=== PATIENT | male | born 1950 | race Caucasian/White ===

== ENCOUNTER 2017-06-30 17:35 | Emergency (ER) | payer MEDICARE, OTHER, SELFPAY ==
[2017-06-30 17:36] VITALS: BP 135/89; PULSE 67; RESP 16; TEMP 36.6; O2SAT 97; BMI 26.2
[2017-06-30 17:48] VITALS: BP 137/77; PULSE 61; RESP 16; O2SAT 99
--- NOTE | 2017-06-30 18:06 | EKG12_ITS ---
Test Reason : SYNCOPE Blood Pressure : / mmHG Vent. Rate : 062 BPM Atrial Rate : 062 BPM P-R Int : 186 ms QRS Dur : 118 ms QT Int : 452 ms P-R-T Axes : 048 -23 -02 degrees QTc Int : 458 ms Normal sinus rhythm Right bundle branch block Left ventricular hypertrophy Abnormal ECG Confirmed by ROSARIO HARE, REMIGIO ([id number]), videotape editor ANTONINO MURPHY ([id number]) on 07/01/2017 2:39:41 PM Referred By: Confirmed By:REMIGIO PONCE MD
[2017-06-30] MEDS: 0.9% Normal Saline 1,000 ML 1000 ML IV (18:17)
[2017-06-30] MEDS: Ondansetron 4 MG/2 ML Vial IV (18:19)
[2017-06-30 18:35] VITALS: BP 128/73; PULSE 57
[2017-06-30 18:39] LABS: Absolute Lymphocyte Count 0.58 X10^3/ul (0.83-4.51); Absolute Neutrophil Count 6.2 X10^3/uL (2.0-7.7); Basophil# 0.01 X10^3/uL; Basophil% 0.1 % (0-1); Eosinophil# 0.07 X10^3/uL; Hematocrit 44.3 % (40-54); Hemoglobin 15.3 g/dl (13.0-16.5); Lymphocyte # 0.58 X10^3/ul (4.0); Mean Corp Hgb Conc 34.5 g/gl (32-36); Mean Corpuscular Hgb 31.7 pg (27.0-32.0); Mean Corpuscular Volume 91.7 fL (80-94); Mean Platelet Vol. 11.2 fl (6.2-12.0); Monocyte# 0.43 X10^3/uL; Monocyte% 5.9 % (0-10); Neutrophil # 6.19 X10^3/uL (2.7-7.7); Neutrophil % 84.9 % (47-70); Platelet Count 150 K/mm3 (150-450); RBC Distribution Width CV 12.9 % (11.6-14.6); RBC Distribution Width SD 43.1 fl (35.1-43.9); Red Blood Count 4.83 M/mm3 (4.6-6.2); White Blood Count 7.3 K/mm3 (4.4-11.0)
[2017-06-30 18:40] LABS: Differential Indicated SCAN CRITERIA MET; POSITIVE COUNT NO; POSITIVE DIFFERENTIAL YES; POSITIVE MORPHOLOGY NO
[2017-06-30 18:45] LABS: Anion Gap 5 (5-15); BUN 16 mg/dL (7-18); BUN/Creat Ratio 19.7 RATIO (10-20); Calcium,Total 8.5 mg/dL (8.5-10.1); Chloride 106 mmol/L (98-107); Creatinine, Serum 0.81 mg/dL (0.70-1.30); EST Glomerular Filtration Rate 101 mL/min (>60); Est Glom Filt Rate - Afr Amer 122 mL/min (>60); Estimated Creatinine Clearance 89.71 ml/min; Glucose 119 mg/dL (74-106); Potassium 4.3 mmol/L (3.5-5.1); Sodium Level 141 mmol/L (136-145)
[2017-06-30 18:53] LABS: Differential Comment SCANNNED
[2017-06-30] MEDS: diazePAM 5 MG Tablet PO (19:11)
[2017-06-30 19:14] VITALS: BP 127/75; PULSE 63; RESP 16; O2SAT 100
--- NOTE | 2017-06-30 19:59 | ED.VISSUMM ---
- ER Visit Summary Date of Service: 06/30/17 Chief Complaint: Dizzy History of Present Illness: The patient is a 67 M who presents with a sudden onset of vertigo. 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 He states that he began to feel sweaty and feel nauseated. States that he developed room spinning. It was made worse with any type of movement. He laid down the ground and could not get up. States he is feeling somewhat better now but still has nausea and still has vertiginous symptoms when moving. His similar episode about 2 weeks ago. Prior to that he never had any vertigo. He has had to have left ear surgery at one point had 75% loss of hearing but gradually came back with the use of steroids. He sees Dr. Frank Parker for ENT. He recently traveled to [place] and flew back home yesterday. Physical Examination: Afebrile vital signs are stable Gen: Well-nourished well-developed Head: Normocephalic atraumatic Eyes: Perrl EOMI ENT: TMs clear no rhinorrhea moist mucous membranes Neck: Supple no lymphadenopathy no JVD nontender CVS: Regular rate rhythm no murmurs normal S1-S2 Respiratory: No distress clear to auscultation bilaterally chest nontender Abdomen: Soft nontender nondistended normal bowel sounds no masses Back: Nontender Extremity: Nontender no edema Skin: Normal color no rash Neuro: alert orientated ?3 CN II-XII intact normal strength sensation patient has a positive Naila-Hallpike test. He has the fast component of nystagmus to the left. Psych: Normal affect normal mood Test Results: EKG showed a sinus rhythm with a right bundle branch block at a rate of 62. CBC and chemistry showed glucose of 119. Emergency Department Course and Treatment: he received IV fluids Zofran and Valium. He is feeling better and is able to ambulate to the bathroom unassisted. Patient will be discharged home to follow-up with ENT. I will write for Zofran and Valium. He was given self treatment guidelines at home. Impression: 1. Benign positional vertigo This note was generated with [employer] dictation software. It may contain incorrect words, spelling, and punctuation that were not noted in review of the chart prior to signing ED Disposition - Plan for ED Patient: Disposition: Home or Assisted Living Chief Complaint: Dizziness Instructions: ED BPV Vertigo Prescriptions: Ondansetron [Zofran Odt] 4 mg PO Q8H PRN PRN #10 tab PRN Reason: Nausea Diazepam [Valium] 5 mg PO Q8 PRN #10 tab PRN Reason: Vertigo Referrals: Vincenzo Hogan [Primary Care Provider] - Frank Garcia MD [STAFF PHYSICIAN] - 5-7 Days
[2017-06-30 20:13] VITALS: BP 130/73; PULSE 62; RESP 18; O2SAT 100
== END 2017-06-30 20:15 | disposition home or self-care (01) ==
PROVIDERS: Emergency Provider Emergency Medicine; Family Provider Family Medicine; PCP Family Medicine
DX: H81.10 Benign paroxysmal vertigo, unspecified ear (principal); H91.92 Unspecified hearing loss, left ear; I45.10 Unspecified right bundle-branch block
CPT/HCPCS: 80048; 85025; 93005; 96361; 96374; 99284; J7030; J2405

== ENCOUNTER → 2023-08-03 | Outpatient (CLI) | payer MEDICARE, BC, SELFPAY ==
[2023-08-03 10:06] LABS: Absolute Neutrophil Count 2.7 X10^3/uL (2.0-7.7); Basophil# 0.03 X10^3/uL; Basophil% 0.6 % (0-1); Eosinophil# 0.24 X10^3/uL; Eosinophils% 4.9 % (0-5); Hematocrit 45.8 % (40-54); Hemoglobin 15.8 g/dL (13.0-16.5); Lymphocyte % 26.4 % (19-41); Mean Corp Hgb Conc 34.5 g/dL (32-36); Mean Corpuscular Hgb 32.6 pg (27.0-32.0); Mean Corpuscular Volume 94.4 fL (80-94); Mean Platelet Vol. 11.1 fl (6.2-12.0); Monocyte# 0.69 X10^3/uL; NRBC Flagged by Analyzer 0 % (0-5); Neutrophil # 2.65 X10^3/uL (2.7-7.7); Neutrophil % 53.9 % (47-70); Platelet Count 179 K/mm3 (150-450); RBC Distribution Width CV 12.7 % (11.6-14.6); RBC Distribution Width SD 43.8 fl (35.1-43.9); Red Blood Count 4.85 M/mm3 (4.6-6.2); White Blood Count 4.9 K/mm3 (4.4-11.0)
[2023-08-03 10:36] LABS: Vitamin D,25 Hydroxy 59.3 ng/mL
[2023-08-03 11:04] LABS: ALB/GLOB Ratio 1.2 RATIO (0.9-2.4); AST(SGOT) 31 U/L (15-37); Alanine Aminotransfer ALT/SGPT 32 U/L (16-61); Albumin, Serum 3.5 g/dL (3.2-5.0); Alkaline Phosphatase 54 U/L (45-117); Anion Gap 2 (5-15); BUN 20 mg/dL (7-18); BUN/Creat Ratio 22.6 RATIO (10-20); CRP < 2.90 mg/L (0.0-3.0); Calcium,Total 8.7 mg/dL (8.5-10.1); Chloride 111 mmol/L (98-107); Cholesterol 118 mg/dL (200); Creatinine, Serum 0.89 mg/dL (0.70-1.30); EST Glomerular Filtration Rate 90 mL/min (>60); Est Glom Filt Rate - Afr Amer 109 mL/min (>60); Globulin 2.8 g/dL (2.2-4.2); Glucose 109 mg/dL (74-106); High Density Lipoprotein 47 mg/dL; PSA,Total - Annual Screen 1.73 ng/mL (0.00-4.00); Potassium 4.4 mmol/L (3.5-5.1); Protein, Total 6.3 g/dL (6.4-8.2); Sodium Level 142 mmol/L (136-145); T4 Free Direct 0.91 ng/dL (0.76-1.46); Thyroid Stim Hormone (TSH) 2.22 uIU/mL (0.358-3.74); Triglycerides 66 mg/dL; Very Low Density Lipoprotein 13 mg/dL (5-40)
[2023-08-03 11:34] LABS: Hemoglobin A1c 5.2 % (3.8-5.6)
[2023-08-04 05:07] LABS: HOMOCYSTEINE 11.4 umol/L (0.0-19.2)
== END | disposition home or self-care (01) ==
LOC: LAB.FUTURE 09:38 → LAB 09:43
PROVIDERS: PCP Internal Medicine; Visit Provider Internal Medicine
DX: E78.00 Pure hypercholesterolemia, unspecified (principal); I65.23 Occlusion and stenosis of bilateral carotid arteries; M35.3 Polymyalgia rheumatica; E03.9 Hypothyroidism, unspecified; R73.9 Hyperglycemia, unspecified; E78.41 Elevated Lipoprotein(a); Z12.5 Encounter for screening for malignant neoplasm of prostate
CPT/HCPCS: 36415; 80053; 80061; 82306; 83036; 83090; 84153; 84439; 84443; 85025; 86140; G0103

== ENCOUNTER → 2023-08-06 | Outpatient (CLI) | payer MEDICARE, BC, SELFPAY ==
--- NOTE | 2023-08-06 08:58 | CDU_ITS ---
Reason For Study: BILATERAL CAROTID ARTERY PLAGUE Rt. Velocities/BP Lt. Velocities/BP Prox CCA 91.6/21.6 cm/sec. Prox CCA 126.8/27.4 cm/sec. Mid CCA 83.0/26.5 cm/sec. Mid CCA 102.3/27.4 cm/sec. Dist CCA 79.3/25.3 cm/sec. Dist CCA 86.3/24.9 cm/sec. Prox ICA 61.4/20.8 cm/sec. Prox ICA 72.3/18.3 cm/sec. Mid ICA 85.6/32.9 cm/sec. Mid ICA 97.7/31.4 cm/sec. Dist ICA 96.3/39.1 cm/sec. Dist ICA 99.0/41.3 cm/sec. Rt. ICA/CCA = 96.3/83.0=1.2. Lt. ICA/CCA = 99.0/102.3=1.0. Prox ECA 63.4/16.7 cm/sec. Prox ECA 83.0/19.2 cm/sec. Rt. Vert. 47.8/11.0 cm/sec. Lt. Vert. 45.0/15.4 cm/sec. Right Extracranial There is intimal thickening but no significant atherosclerotic plaque noted in the right common carotid artery. There is homogeneous, smooth atherosclerotic plaque noted in the right internal carotid artery. There is homogeneous, smooth atherosclerotic plaque noted in the right external carotid artery. Antegrade flow is noted in the right vertebral artery. Left Extracranial There is intimal thickening but no significant atherosclerotic plaque noted in the left common carotid artery. There is homogeneous, smooth atherosclerotic plaque noted in the left internal carotid artery. There is intimal thickening but no significant atherosclerotic plaque noted in the left external carotid artery. Antegrade flow is noted in the left vertebral artery. Procedure Carotid Duplex [id number]. This is a Carotid Duplex examination using B-mode, color flow and specral Doppler. Exam performed in department. VL/Carotid Duplex Ultrasound Interpretation Summary Mild (<50%) stenosis right extracranial internal carotid. Mild (<50%) stenosis left extracranial internal carotid. Patent and antegrade vertebrals bilaterally. Ordering Physician: Fallon Davis Referring Physician: Fallon Davis Performed By: Jenny Shaffer, JAMES, RVT
== END | disposition home or self-care (01) ==
PROVIDERS: PCP Internal Medicine; Referring Provider Internal Medicine; Visit Provider Internal Medicine
DX: I65.23 Occlusion and stenosis of bilateral carotid arteries (principal)
CPT/HCPCS: 93880

== ENCOUNTER 2023-10-22 08:30 | Outpatient (RCR) | payer MEDICARE, BC, SELFPAY ==
--- NOTE | 2023-09-20 13:29 | HP.PTEVAL_ITS ---
Patient's Visit Information Visit Information Visit Information: NASRIN HARMAN is a 73 year old M referred to Physical Therapy by PENG DUBON with a diagnosis of CLOSED FRACTURE DISTAL END OF LEFT FIBULULA WITH RONTINE HEALING. Date of Evaluation: 09/20/23 Physical Therapist: Peng Stark, PT, Cert MDT, OCS Visit Plan Frequency: 2x /Week Duration: 6 Weeks Plan: LEFT FIBULAR FRACTURE WEAN FROM CAM BOOT TO SHOE WITH AIRCAST WBAT PT INTERVENTIONS ROM ANKLE ,FLEXABILITY CALF ,STRENGTHENING EX'S ANKLE STABILIZERS ,PROPRIOCEPTION /GAIT TRAINING ,FUNCTIONAL STRENGTH AND VASO NEEDED Subjective Subjective: This 73 y/o male presents to physical therapy with left fibula fracture nondisplaced . Patient twisted ankle on [facility] on August 09 and [facility] ,did x-rays showed fracture ,CAM boot and crutches with NWB and kneeling scooter. Patient seen PA at [facility] on [address] continue with NWB 6weeks . Seen PA last Wednesday showed September 16 with WBAT LLE and wean CAM boot. Patient repeated x-rays looked. Provided air cast when wean from. Patient has a lot of edema. Some pain ankle lateral ankle. C/O paresthesia/tingling dorsal foot. Patient has difficulty with walking and standing affects ADLS and housework tasks. Patient sleeping good. Patient goals to return to prior level of function and walking. 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: Pain Intensity (Out of 10): 2 Pain Intensity Range: 10 Objective Objective: POSTURE: ( frontal plane mechanics) pes planus GAIT: ambulates with CAM boot WBAT NEURO: c/o paresthesia/tingling dorsal foot PALPATION: lateral ankle EDEMA: trimalleolar joint 70.1 cm AROM ANKLE : dorsiflexion 0 degrees ,inversion 20 degrees ,inversion 4 degrees ,plantar flexion 55 degrees MMT: ( peak force) dorsiflexion 11.2 ,eversion 11.6 ,inversion 10.6 ,plantarflexion 16.5 G-S : flexibility mod tight Balance/Special Test Scores Lower Extremity Functional Score: 35 Goals Goal 1:: Patient to be I with HEP for ankle Goal Time Frame: 4-6 Weeks Goal 2:: Patient improve AROM ankle by 5 degrees to improve stairs Goal Time Frame: 4-6 Weeks Goal 3:: Patient to normalize gait pattern. Goal Time Frame: 4-6 Weeks Goal 4:: Patient to improve peak force ankle by 5-10# strength to improve function Goal Time Frame: 4-6 Weeks Goal 5:: Patient improve LFES score by 5-10 points to improve QOL and function Goal Time Frame: 4-6 Weeks Goal 6:: Patient to demonstrate 70% improvement with improve function and gait. Goal Time Frame: 4-6 Weeks Rehabilitation Potential Physical Therapy Diagnosis: This patient has left fibular fracture with pain ,edema ,weakness , decrease ROM impairs walking and function thus benefit from skilled PT Rehabilitation Potential: Good Anticipated Interventions Patient/Client Instruction: Educate patient on: Condition and Plan of Care For the Purpose of:: To decrease pain, To increase ROM, To improve muscle performance and motor function, To improve ability to perform ADL's, To increase tolerance to activity/condition/position, To improve ability of physical actions for home/community/work/leisure, To improve health of tissue, To decrease soft tissue restriction, To increase flexibility/ROM, To improve endurance, To improve balance and To improve tolerance to ADL's Therapeutic Exercise to Include: Strength training, Endurance training, Balance training, Flexibilty training, Gait and locomotor training and Active ROM Comment: ANKLE For the Purpose of:: To decrease pain, To increase ROM, To improve muscle performance and motor function, To improve ability to perform ADL's, To increase tolerance to activity/condition/position, To improve ability of physical actions for home/community/work/leisure, To improve gait and locomotor functions, To improve health of tissue, To decrease soft tissue restriction, To increase flexibility/ROM, To prevent re-injury and To improve tolerance to ADL's Cryotherapy (ice pack, ice massage): Yes Thermo therapy (hot pack): Yes Vasopneumatic device: Yes For the Purpose of:: To decrease pain, To decrease swelling/inflammation, To increase ROM, To improve health of tissue and To decrease soft tissue restriction Text: Thank you for the opportunity to evaluate your patient. For Medicare and Medicare HMO plans, please review the plan of care and approve it. It will need to be FAXED BACK to us at [phone] for Medicare purposes. For Medicare only, by signing this I certify the plan of care. Please let me know if there are questions or concerns regarding this plan of care. Physician Signature: Date:
--- NOTE | 2023-10-22 08:51 | HP.PTDCSUM ---
Discharge Summary D/C summary: It has been my pleasure to treat NASRIN HARMAN referred by PENG DUBON, with the diagnosis of CLOSED FRACTURE DISTAL END OF LEFT FIBULULA WITH ROUTINE HEALING for a total of 8 visit(s). Discharge Date: 10/22/23 Please see the following information for a summary of their discharge status. Subjective Subjective: Pt. reports no pain currently. Pt. repots bein 90% better overall. Pt. is back to walking without issues. He reports occasional soreness, but not bad. Pt. to follow back up with physician next week. Pain Left Ankle: Pain Intensity (Out of 10): 0 Overall Improvement % Improvement: 90 Objective Objective/Function: ROM: L ankle: DF 16deg, PF 38deg, INV 8deg, EVR 8deg. Pt. did have some mild soreness with INV over pressure, but increase NW. MMT: Pt. has 5/5 strength throughout B ankles. R ankle: DF 37.1#, PF 66.1#, INV 21.3#, EVR 17.1# L ankle: DF 35.6#, PF 62.9#, INV 18.3#, EVR 16.1#. GAIT: pt. has normal gait pattern without increase in symptoms. Normal througout. STAIRS: Pt. was able to jog up and down the stairs without issues. With reciprocal pattern without HR. No pain noted. Goals Goal 1:: Patient to be I with HEP for ankle Goal Progress: Goal Met Goal 2:: Patient improve AROM ankle by 5 degrees to improve stairs Goal Progress: Goal Met Goal 3:: Patient to normalize gait pattern. Goal Progress: Goal Met Goal 4:: Patient to improve peak force ankle by 5-10# strength to improve function Goal Progress: Goal Met Goal 5:: Patient improve LFES score by 5-10 points to improve QOL and function Goal Progress: Goal Met Goal 6:: Patient to demonstrate 70% improvement with improve function and gait. Goal Progress: Goal Met Plan Plan: Pt. is overall doing great. Pt. will be DC from PT at this point in time. I talked to him about slowly increasing distances with walking building back up to his normal routine. Pt. consents. D/C Information Discharge Comments: Pt. has met all goals and will be DC from PT at this point in time. d/c sentence: If there are questions or concerns regarding this patient's physical therapy, please feel free to call me at [phone]. Thank you for the referral of this patient. Sincerely, Seth Alberto, DPT Balance/Gait/Functional tests Balance/Special Test Scores Lower Extremity Functional Score: 74 Improvement % Improvement: 90
== END 2023-10-22 19:00 | disposition home or self-care (01) ==
LOC: PT 08:30
PROVIDERS: PCP Internal Medicine
DX: S82.832D Other fracture of upper and lower end of left fibula, subsequent encounter for closed fracture with routine healing (principal)
CPT/HCPCS: 97110; 97161; 97530

== ENCOUNTER → 2024-01-28 | Outpatient (CLI) | payer MEDICARE, BC, SELFPAY ==
--- NOTE | 2024-01-28 07:58 | AAAS_ITS ---
Reason For Study: Screening for AAA Aorta Measurements Aorta Doppler Measurements Proximal aorta measures1.89cm x 1.83cm. in cross- Peak systolic flow velocities within the proximal sectional axis. aorta measure 90 cm/sec. Proximal aorta measures1.75cm. in longitudinal Peak systolic flow velocities within the mid aorta axis. measure 110 cm/sec. Mid aorta measures1.80cm x 1.96cm. in cross- Peak systolic flow velocities within the distal sectional axis. aorta measure 107 cm/sec. Mid aorta measures1.81cm. in longitudinal axis. Distal aorta measures1.65cmx 1.80cm. in cross- sectional axis. Distal aorta measures1.75cm. in longitudinal axis. Left Iliac Artery Left iliac artery measures 1.24cm x 1.16 cm. in the cross-sectional axis. Left iliac artery measures 1.21 cm. in the longitudinal axis. Peak systolic velocity in the left iliac artery measures 77 cm/sec. Right Iliac Artery Right iliac artery measures 1.04cm x 0.95 cm. in the cross-sectional axis. Right iliac artery measures 1.14 cm. in the longitudinal axis. Peak systolic velocity in the right iliac artery measures 87 cm/sec. VL/AAA Screening Interpretation Summary Aorta patent, normal caliber Right iliac artery patent, normal caliber Left iliac artery patent, 1.24 cm ectasia Ordering Physician: Fallon Davis Referring Physician: Fallon Davis Performed By: Ebony Arango, JAMES, RVT
--- OUTSIDE RECORDS SUMMARY | 2024-01-28 08:07 | XMS RPT_ITS | CCD ---
Author Organization [facility] Care Team Providers Care 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 Name Role Phone Suzie Hogan Unavailable Unavailable Suzie Hogan Unavailable Unavailable Suzie Hogan Unavailable Unavailable Unavailable Primary Care Provider UnavailSUZIE Brown Primary Care Unavailable SUZIE HOGAN Attending Unavailable SUZIE HOGAN Referring Unavailable Suzie Hogan MD Primary Care Provider [phone] Suzie Hogan MD Primary Care Provider [phone] SUZIE HOGAN Primary Care Unavailable WAI FERRIS Referring Unavailable SUZIE HOGAN Primary Care Unavailable SUZIE HOGAN Primary Care Unavailable Allergies Allergy Classification Reported Allergen(s) Allergy Type Date of Onset Reaction(s) Facility (3 sources) Shellfish; Translations: [SHELLFISH] Food Allergy 04-06-2014 [facility] Medications Current Medications Medication Drug Class(es) Dates Sig (Normalized) Sig (Original) aspirin 81 mg delayed release oral tablet (2 sources) Platelet Aggregation Inhibitor, Nonsteroidal Anti-inflammatory Drug Start: 06-01-2008 aspirin(ECOTRIN LOW STRENGTH 81 MG TAB) Take one(1) tablet daily. 0 06/01/2008 Active cholecalciferol 0.025 mg oral capsule (2 sources) Vitamin D Cholecalciferol, Vitamin D3, (VITAMIN D) 25 mcg (1,000 unit) cap Take 1,000 Units by mouth once daily. Active doxycycline monohydrate 100 mg oral capsule (2 sources) Tetracycline-class Drug Start: 03-12-2023 doxycycline monohydrate (MONODOX) 100 mg capsule 03/12/2023 Active levothyroxine sodium 0.05 mg oral tablet (2 sources) l-Thyroxine Start: 12-30-2018 levothyroxine (SYNTHROID) 50 mcg tablet 12/30/2018 Active mxfslfnk-mbi-KP-lycop en-lutein (CENTRUM SILVER MEN) 300-600-300 mcg tab (2 sources) take 300-600 tablets by mouth once daily grqotysy-qns-VK-ly copen-lutein (CENTRUM SILVER MEN) 300-600-300 mcg tab Take 1 tablet by mouth once daily. Active take 300-600 tablets by mouth once daily mbshjqve-fdz-JD-lycopen-lutein (CENTRUM SILVER MEN) 300-600-300 mcg tab Take 1 tablet by mouth once daily. 0 Active omega-3 fatty acids/vitamin e(FISH OIL 1,000 MG CAP) (2 sources) Start: 06-01-2008 omega-3 fatty acids/vitamin e(FISH OIL 1,000 MG CAP) Take one(1) tablet daily. 0 06/01/2008 Active Pravastatin (2 sources) HMG-CoA Reductase Inhibitor pravastatin sodium (PRAVASTATIN ORAL) Take by mouth. Active pravastatin sodi um (PRAVASTATIN ORAL) Take by mouth. 0 Active predniSONE 5 mg oral tablet (2 sources) Start: 02-11-2023 predniSONE (DELTASONE) 5 mg tablet 02/11/2023 Active rosuvastatin calcium 5 mg oral tablet (2 sources) HMG-CoA Reductase Inhibitor take 1 tablet by mouth once daily rosuvastatin (CRESTOR) 5 mg tablet Take 5 mg by mouth once daily. Active Problems Active Problems Problem Classification Problem Date Documented Date Episodic/Chronic Cataract (2 sources) Bilateral senile combined form cataracts of eyes; Translations: [Combined forms of age-related cataract, bilateral] Onset: 02-07-2019 02-07-2019 Chronic Fracture of lower limb (1 source) Closed fracture of lateral malleolus; Translations: [Nondisplaced fracture of lateral malleolus of left fibula, initial encounter for closed fracture] 08-10-2023 Episodic Other aftercare (2 sources) FDC (current) use of systemic steroids; Translations: [FDC (current) use of systemic steroids] Onset: 12-14-2022 Episodic Other connective tissue disease (1 source) Other symptoms and signs involving the musculoskeletal system; Translations: [Other musculoskeletal symptoms referable to limbs] 11-12-2022 Episodic Other eye disorders (2 sources) Bilateral vitreous floaters; Translations: [Other vitreous opacities, bilateral] Onset: 02-07-2019 02-07-2019 Chronic Other nervous system disorders (1 source) Carpal tunnel syndrome of right wrist; Translations: [Carpal tunnel syndrome, right upper limb] 01-18-2023 Chronic Other nervous system disorders (1 source) Ulnar neuropathy; Translations: [Lesion of ulnar nerve, right upper limb] 01-18-2023 Chronic Other non-traumatic joint disorders (2 sources) Swollen ankle region; Translations: [Effusion, left ankle] 08-10-2023 Episodic Other non-traumatic joint disorders (1 source) Effusion, left ankle; Translations: [Ankle swelling, left] Onset: 08-10-2023 Episodic Past or Other Problems Problem Classification Problem Date Documented Date Episodic/Chronic Other connective tissue disease (2 sources) Calcaneal spur; Translations: [Calcaneal spur, unspecified foot] Onset: 11-21-2010 05-11-2014 Episodic Other eye disorders (2 sources) Dry eyes; Translations: [Dry eye syndrome of bilateral lacrimal glands] Onset: 02-07-2019 02-07-2019 Episodic Residual codes; unclassified (2 sources) Family history of malignant neoplasm of gastrointestinal tract; Translations: [Family history of malignant neoplasm of digestive organs] Onset: 05-11-2014 Resolved: 05-11-2014 Episodic Results Test Name Value Interpretation Reference Range Facility [facility] 08-10-2023 CNOV Office Visit (UCTR ) ISSAC HARMAN ([id number]) 1950 M Date Time Provider Department 08/10/23 3:15 PM WAI FERRIS [facility] During your visit today, we recorded the following information about you: Temperature Pulse Respiration Blood pressure 97.5 degrees 92/minute 16/minute 124/82 Weight 86 kg Wai Ferris APRN.CNP 08/10/2023 4:12 PM Signed This note was created using NoteWriter. Subjective Issac Villafuerte Iftikhar is a 73 year old male. 73 year old male with PMH thyroid and hyperlipidemia presents for ankle pain. 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 Ambulatory in exam room Don't think I broke it but states presents at urging of his The history is provided by the patient. No tile grinder was used. Musculoskeletal Problem This is a new problem. The current episode started today. The problem occurs constantly. The problem has been unchanged. Associated symptoms include joint swelling. Pertinent negatives include no abdominal pain, anorexia, arthralgias, change in bowel habit, chest pain, chills, congestion, coughing, diaphoresis, fatigue, fever, headaches, myalgias, nausea, neck pain, numbness, rash, sore throat, swollen glands, urinary symptoms, vertigo, visual change, vomiting or weakness. Nothing aggravates the symptoms. He has tried nothing for the symptoms. The treatment provided no relief. PAST MEDICAL HISTORY Diagnosis Date Diarrhea Thyroid disease PAST SURGICAL HISTORY Procedure Laterality Date COLONOSCOPY FLX DX W/COLLJ SPEC WHEN PFRMD 08/13/2008 Colonoscopy COLONOSCOPY FLX DX W/COLLJ SPEC WHEN PFRMD 05/11/14 Colonoscopy COLONOSCOPY FLX DX W/COLLJ SPEC WHEN PFRMD 09/11/2019 Colonoscopy ALLERGIES Shellfish MEDICATIONS predniSONE (DELTASONE) 5 mg tablet doxycycline monohydrate (MONODOX) 100 mg capsule xwmcxfoj-yvi-LK-lycope n-lutein (CENTRUM SILVER MEN) 300-600-300 mcg tab Take 1 tablet by mouth once daily. Cholecalciferol, Vitamin D3, (VITAMIN D) 25 mcg (1,000 unit) cap Take 1,000 Units by mouth once daily. rosuvastatin (CRESTOR) 5 mg tablet Take 5 mg by mouth once daily. levothyroxine (SYNTHROID) 50 mcg tablet pravastatin sodium (PRAVASTATIN ORAL) Take by mouth. omega-3 fatty acids/vitamin e(FISH OIL 1,000 MG CAP) Take one(1) tablet daily. aspirin(ECOTRIN LOW STRENGTH 81 MG TAB) Take one(1) tablet daily. FAMILY HISTORY Problem Relation Age of Onset Colon Cancer Father Social History Tobacco Use Smoking status: Never Smokeless tobacco: Never Substance Use Topics Alcohol use: No Drug use: Never Review of Systems Constitutional: Negative for chills, diaphoresis, fatigue and fever. HENT: Negative for congestion and sore throat. Eyes: Negative for pain, discharge and itching. Respiratory: Negative for apnea, cough, choking and chest tightness. Cardiovascular: Negative for chest pain. Gastrointestinal: Negative for abdominal pain, anorexia, change in bowel habit, nausea and vomiting. Musculoskeletal: Positive for joint swelling. Negative for arthralgias, myalgias and neck pain. Left ankle pain Skin: Negative for rash. Allergic/Immunologic: Negative for environmental allergies, food allergies and immunocompromised state. Neurological: Negative for dizziness, vertigo, weakness, numbness and headaches. Hematological: Negative for adenopathy. Does not bruise/bleed easily. Psychiatric/Behavioral : Negative for agitation and behavioral problems. Objective BP 124/82 Pulse 92 Temp 36.4 ?C (97.5 ?F) (Tympanic) Resp 16 Wt 86 kg (189 lb 9.5 oz) SpO2 97% Physical Exam Vitals and nursing note reviewed. Constitutional: General: He is not in acute distress. Appearance: Normal appearance. He is not ill-appearing, toxic-appearing or diaphoretic. HENT: Head: Normocephalic and atraumatic. Right Ear: External ear normal. Left Ear: External ear normal. Nose: Nose normal. No congestion or rhinorrhea. Mouth/Throat: Mouth: Mucous membranes are moist. Pharynx: Oropharynx is clear. No oropharyngeal exudate or posterior oropharyngeal erythema. Eyes: General: Right eye: No discharge. Left eye: No discharge. Extraocular Movements: Extraocular movements intact. Conjunctiva/sclera: Conjunctivae normal. Pupils: Pupils are equal, round, and reactive to light. Cardiovascular: Rate and Rhythm: Normal rate and regular rhythm. Pulses: Normal pulses. Heart sounds: Normal heart sounds. No murmur heard. No friction rub. No gallop. Pulmonary: Effort: Pulmonary effort is normal. No respiratory distress. Breath sounds: Normal breath sounds. No stridor. No wheezing, rhonchi or ra (more content not included)... Normal [facility] XR ANKLE 3V AP/LAT/OBL LTon 08-10-2023 XR ANKLE 3V AP/LAT/OBL LT * * *Final Report* * * DATE OF EXAM: Aug 10 2023 3:41PM WOX [id number] - XR ANKLE 3V AP/LAT/OBL LT / PROCEDURE REASON: Ankle swelling, left * * * * Physician Interpretation * * * * History: Left ankle swelling FINDINGS: AP, lateral, and oblique views of the left ankle been obtained. There is an oblique fracture of the distal fibula without significant displacement, with overlying soft tissue swelling. Tibiotalar joint space is maintained. Plantar and posterior calcaneal osteophytes. Remaining osseous structures are intact. IMPRESSION: Nondisplaced oblique fracture of the distal left fibula. [employer] Operations Consultant: [facility] Transcribe Date/Time: Aug 10 2023 3:42P Dictated by : ROBI BARBER MD This examination was interpreted and the report reviewed and electronically signed by: ROBI BARBER MD on Aug 10 2023 3:43PM EST [id number] Normal [facility] XR Ankle - left AP and Later al and obliqueon 08-10-2023 IMPRESSION: Nondisplaced oblique fracture of the distal left fibula. [employer] Operations Consultant: [facility] Transcribe Date/Time: Aug 10 2023 3:42P Dictated by : ROBI BARBER MD This examination was interpreted and the report reviewed and electronically signed by: ROBI BARBER MD on Aug 10 2023 3:43PM EST DIVISION OF RADIOLOGY * * *Final Report* * * DATE OF EXAM: Aug 10 2023 3:41PM WOX [id number] - XR ANKLE 3V AP/LAT/OBL LT / PROCEDURE REASON: Ankle swelling, left * * * * Physician Interpretation * * * * History: Left ankle swelling FINDINGS: AP, lateral, and oblique views of the left ankle been obtained. There is an oblique fracture of the distal fibula without significant displacement, with overlying soft tissue swelling. Tibiotalar joint space is maintained. Plantar and posterior calcaneal osteophytes. Remaining osseous structures are intact. DIVISION OF RADIOLOGY Provider, [facility] - 08/10/2023 * * *Final Report* * * DATE OF EXAM: Aug 10 2023 3:41PM WOX [id number] - XR ANKLE 3V AP/LAT/OBL LT / PROCEDURE REASON: Ankle swelling, left * * * * Physician Interpretation * * * * History: Left ankle swelling FINDINGS: AP, lateral, and oblique views of the left ankle been obtained. There is an oblique fracture of the distal fibula without significant displacement, with overlying soft tissue swelling. Tibiotalar joint space is maintained. Plantar and posterior calcaneal osteophytes. Remaining osseous structures are intact. IMPRESSION IMPRESSION: Nondisplaced oblique fracture of the distal left fibula. [employer] Operations Consultant: [facility] Transcribe Date/Time: Aug 10 2023 3:42P Dictated by : ROBI BARBER MD This examination was interpreted and the report reviewed and electronically signed by: ROBI BARBER MD on Aug 10 2023 3:43PM EST [facility] Radiology Study observation (narrative) [facility] XR Ankle - left AP and Later al and obliqueOrdered By: [facility] Provider on 08-10-2023 [facility] CNOVon 04-06-2023 CNOV Office Visit (UCWSTR ) ISSAC HARMAN ([id number]) 1950 M Date Time Provider Department 04/06/23 12:15 PM FLOR KHOURY [facility] During your visit today, we recorded the following information about you: Temperature Pulse Respiration Blood pressure 97 degrees 67/minute 16/minute 136/82 Weight 85.6 kg Flor Khoury APRN.FOUR SLIDE MACHINE SETTER 04/06/2023 12:38 PM Signed CC: Patient presents with: Ear Problem: Ears feel clogged x 1 week HPI: Issacmaisha Harman is a 73 year old male who presents to the office with complaint of respiratory symptoms, sinus symptoms, and ear symptoms for a week. Symptoms are staying the same. Associated symptoms includes ear pressure . Denies nasal congestion, facial pain/pressure, fever, nausea, vomiting , and diarrhea. Treatments tried include nothing so far. with no relief of symptoms. Sick contacts: unknown. History of asthma, frequent episodes of bronchitis, chronic bronchitis, bronchiectasis or COPD: No Smoker: No Seasonal/environmental allergies: No The ROS is otherwise negative. The patient's pmh, medications, allergies, and past visits are reviewed. PHYSICAL EXAM: BP 136/82 Pulse 67 Temp 36.1 ?C (97 ?F) (Tympanic) Resp 16 Wt 85.6 kg (188 lb 12.8 oz) SpO2 99% General appearance: alert, cooperative, pleasant, in no acute distress Head: Normocephalic Eyes: EOM's intact, conjunctiva pink and moist, no icterus, sclera white, non-injected Ears: Right ear: External ear/canal- Normal, TM - serous effusion. Left ear: External ear/canal- Normal, TM - serous effusion Oropharynx:moist without lesions, No erythema, exudates or tonsillar hypertrophy. Heart: Negative. RRR without obvious murmur, gallop, or rubs. No ectopy. Lungs: clear to auscultation, without rales or wheeze, good air exchange PAST MEDICAL HISTORY Diagnosis Date Diarrhea Thyroid disease PAST SURGICAL HISTORY Procedure Laterality Date COLONOSCOPY FLX DX W/COLLJ SPEC WHEN PFRMD 08/13/2008 Colonoscopy COLONOSCOPY FLX DX W/COLLJ SPEC WHEN PFRMD 05/11/14 Colonoscopy COLONOSCOPY FLX DX W/COLLJ SPEC WHEN PFRMD 09/11/2019 Colonoscopy ALLERGIES Shellfish MEDICATIONS predniSONE (DELTASONE) 5 mg tablet doxycycline monohydrate (MONODOX) 100 mg capsule pfcbzhkd-fdd-SJ-lycope n-lutein (CENTRUM SILVER MEN) 300-600-300 mcg tab Take 1 tablet by mouth once daily. Cholecalciferol, Vitamin D3, (VITAMIN D) 25 mcg (1,000 unit) cap Take 1,000 Units by mouth once daily. rosuvastatin (CRESTOR) 5 mg tablet Take 5 mg by mouth once daily. levothyroxine (SYNTHROID) 50 mcg tablet omega-3 fatty acids/vitamin e(FISH OIL 1,000 MG CAP) Take one(1) tablet daily. aspirin(ECOTRIN LOW STRENGTH 81 MG TAB) Take one(1) tablet daily. pravastatin sodium (PRAVASTATIN ORAL) Take by mouth. FAMILY HISTORY Problem Relation Age of Onset Colon Cancer Father Social History Tobacco Use Smoking status: Never Smokeless tobacco: Never Substance Use Topics Alcohol use: No Drug use: Never ASSESSMENT/PLAN: 1. Pressure sensation in both ears - ICD9: 388.8, ICD10: H93.8X3 Already on steroids and doxy Instructed to add Claritin. Potential red flag symptoms discussed with the patient. Reviewed appropriate action plan to take if red flag symptoms occur. Patient agreeable to treatment plan. Flor Khoury APRN.FOUR SLIDE MACHINE SETTER Allergies As of Date: 04/06/2023 Noted Allergy Reaction SHELLFISH 04/06/2014 4 - Hives Date Reviewed: 04/06/2023 Reviewed by: Connie Vega LPN - Fully Assessed Reason for Visit: Ear Problem [38] Cmt: Ears feel clogged x 1 week Primary Visit Diagnosis:Pressure sensation in both ears [H93.8X3] Prescriptions as of 04/06/2023 - predniSONE (DELTASONE) 5 mg tablet - doxycycline monohydrate (MONODOX) 100 mg capsule - hwpufdxi-dtz-GE-lycope n-lutein (CENTRUM SILVER MEN) 300-600-300 mcg tab Take 1 tablet by mouth once daily. - Cholecalciferol, Vitamin D3, (VITAMIN D) 25 mcg (1,000 unit) cap Take 1,000 Units by mouth once daily. - rosuvastatin (CRESTOR) 5 mg tablet Take 5 mg by mouth once daily. - levothyroxine (SYNTHROID) 50 mcg tablet - pravastatin sodium (PRAVASTATIN ORAL) Take by mouth. - omega-3 fatty acids/vitamin e(FISH OIL 1,000 MG CAP) Take one(1) tablet daily. - aspirin(ECOTRIN LOW STRENGTH 81 MG TAB) Take one(1) tablet daily. Problem List As Of Date 04/06/2023 Noted Resolved Calcaneal spur [M77.30] 11/21/2010 Family history of malignant neoplasm of gastroi*05/11/2014 05/11/2014 Combined form of senile cataract of both eyes [*02/07/2019 Vitreous floaters of both eyes [H43.393] 02/07/2019 Chronically dry eyes, bilateral [H04.123] 02/07/2019 Encounter Status:Closed by FLOR KHOURY on 04/06/23 Normal [facility] XR BONE DENSITY DEXA AXIALon 12-14-2022 XR BONE DENSITY DEXA AXIAL EXAMINATION: XR BONE DENSITY DEXA AXIAL 12/14/2022 COMPARISON: None. HISTORY: Current chronic use of systemic steroids Dx: Z79.52 (Current chronic use of systemic steroids) ORDERING SYSTEM PROVIDED HISTORY: Current chronic use of systemic steroids, TECHNOLOGIST PROVIDED HISTORY: Illness/Other Reason for exam: osteoporosis Encounter Type: Unknown Additional signs and symptoms: hx prednisone use ORDERING SYSTEM PROVIDED DIAGNOSIS CODES: Z79.52 Current chronic use of systemic steroids TECHNIQUE: Bone mineral density measurements were obtained of the lumbar spine and hip on a [employer], Model A Serial # [id number] machine. FINDINGS: BONE MINERAL DENSITY DETERMINATION: Risk Factors: History of steroid use. Instrument: The examination was done at the [facility]. Hologic serial number [id number]. The average bone mineral density (g/cm2) was measured. Spine density: 1.209 Spine T-score: 1.1 Femoral neck density: 0.853 Femoral neck T-score: -0.6 Total hip density: 1.097 Total hip T-score: 0.4 Final categorization (based on the lowest T-score of the above, as recommended by the International Society of Clinical Densitometry): Normal NOTES: 1. This facility has been validated using the recommendations of the International Society of Clinical Densitometry (ISCD). This validation insures accurate results. In order to be certain that your patient's results are accurate, you should refer them only to facilities that have been validated in this manner. Not all facilities have gone through this rigorous validation. 2. In order to compare results through the years, it is necessary that the patient be scanned on the same instrument each time, or on instruments that have been cross-correlated. If this is not done, then difference may be due to differences in the machines, rather than to changes in the patient's bone density. IMPRESSION: Normal bone mineral density. Workstation ID: [id number] Dictated by: SUZIE WEINER on WedDec 14, 2022 3:14:54 PM EDT Transcribed by: SUZIE WEINER on WedDec 14, 2022 3:14:54 PM EDT Finalized by: SUZIE WEINER on WedDec 14, 2022 3:14:54 PM EDT Normal [facility] Comment on above: Order Comment: Fax Injury/Trauma or Illness?:Illness/Other How long have you had these symptoms (acute/chronic)?:Unknown Reason for exam?:osteoporosis Type of Exam?:Unknown Additional signs and symptoms?:hx prednisone use HIP, BILATERAL W/PELVIS WHEN PERFORMED 3-4 VIEWSon 07-18-2021 HIP, BILATERAL W/PELVIS WHEN PERFORMED 3-4 VIEWS Patient Name: ISSAC HARMAN STUDY: HIP, BILATERAL W/PELVIS WHEN PERFORMED 3-4 VIEWS; 07/18/2021 11:05 am INDICATION: M25.551. COMPARISON: None. ACCESSION NUMBER(S): [id number] ORDERING CLINICIAN: SUZIE HOGAN FINDINGS: Degenerative changes are seen in bilateral SI joints and lower lumbar spine. Narrowing of bilateral hip joints is seen with associated sclerosis and spur formation. Well corticated bony density are soft tissue calcification is seen adjacent to the right inferior pubic ramus. No acute fracture or dislocation is seen. The pubic symphysis is not a diastased. No lytic or blastic lesions are seen. IMPRESSION: Degenerative changes of bilateral hips. Degenerative changes of bilateral SI joints and lower lumbar spine. Electronically signed by: RENETTA CHATMAN MD [facility] CT Coronary Artery Calcium S core - SCREEon 01-07-2018 Calcium mass conc Exam Date/Time:01/07/2018 08:09 EDTReason for Exam:HYPERLIPIDEMIARep ortSTUDY:CT Coronary Artery Calcium Score - SCREE; 01/07/2018 8:09 amINDICATION:HYPERLIPI DEMIA.COMPARISON:None. [id number] CLINICIAN:Suzie VerdugoECHNIQUE:Using prospective ECG gating, CT scan of the coronary arteries was performed without intravenous contrast. Coronary calcium scoring was performed according to the method of Agatston.FINDINGS:The score and distribution of calcium in the coronary arteries is as follows:LM 0,LAD 0.2,0.2 square mmLCx 0,RCA 0,Total 0.2The visualized mid/lower ascending thoracic aorta measures 3.5 cm in diameter. The visualized descending thoracic aorta is within normal limits for course and caliber. The heart is within normal limits for size. No pericardial effusion is present. Small calcified lymph nodes are seen in the right hilum and mediastinum, most consistent with remote granulomatous disease.There is no focal infiltrate, pleural effusion or pneumothorax identified. A 4 mm calcified nodule is seen in the right upper lobe, consistent with remote granulomatous disease. No discrete noncalcified pulmonary nodules or masses are seen within the visualized lungs.IMPRESSION:1. Coronary artery calcium score of 0.2, which places the patient in the low risk category, as below.Coronary artery calcium scoring may be helpful in predicting the risk for future coronary heart disease events. According to the [place] [employer] Clinical Expert Consensus Task Force, such testing provides important prognostic information in patients with more than one coronary heart disease risk factor. The coronary artery calcium score correlates with the annual risk of a non-fatal myocardial infarction or coronary heart disease .Exam Date/Time:01/07/2018 08:09 EDTReportCoronary artery score Annual Risk0-99 0.4%100-399 1.3%>400 2.4%These three breakpoints correspond to lower, intermediate and high risk states for future coronary events. Such information should be used, along with appropriate clinical judgment, to make decisions regarding the intensity of risk factor management strategies to treat blood lipids and to modify other non-lipid coronary risk factors.Reference: [place] P et al. Circulation. 2007; 115:402-426 FINAL REPORT Dictated: 01/07/2018 12:09 pm Toni Zamora MD CSigned (Electronic Signature): 01/07/2018 12:09 pmSigned by: Toni Zamora MD Technologist: IVON[facility] Vital Signs Date Time Vital Sign Value Performing Clinician Mario johnson 08-10-2023 15:09-0400 Body temperature 97.5 [degF] Wai Ferris REEFER TRUCK DRIVER.FOUR SLIDE MACHINE SETTER Work Phone: [facility] 08-10-2023 15:09-0400 Body weight 86 kg Wai Ferris REEFER TRUCK DRIVER.FOUR SLIDE MACHINE SETTER Work Phone: [facility] 08-10-2023 15:09-0400 Diastolic blood pressure 82 mm[Hg] Wai Ferris REEFER TRUCK DRIVER.FOUR SLIDE MACHINE SETTER Work Phone: [facility] 08-10-2023 15:09-0400 Heart rate 92 /min Wai Ferris REEFER TRUCK DRIVER.FOUR SLIDE MACHINE SETTER Work Phone: [facility] 08-10-2023 15:09-0400 Respiratory rate 16 /min Wai Ferris REEFER TRUCK DRIVER.FOUR SLIDE MACHINE SETTER Work Phone: [facility] 08-10-2023 15:09-0400 SaO2% (BldA) [Mass fraction] 97 % Wai Ferris APRN.FOUR SLIDE MACHINE SETTER Work Phone: [facility] 08-10-2023 15:09-0400 Systolic blood pressure 124 mm[Hg] Wai Ferris APRN.FOUR SLIDE MACHINE SETTER Work Phone: [facility] Encounters Encounter Date Encounter Type Care Provider Facility Start: 08-10-2023 End: 08-10-2023 ambulatory SUZIE HOGAN Facility:[facility] Start: 08-10-2023 End: 08-10-2023 Subsequent hospital visit by physician Mis [facility] Carin Work Phone: Radiology Comment on above: Ankle swelling, left [M25.472] Start: 08-10-2023 End: 08-10-2023 Patient encounter procedure Wai Ferris APRN.CNP Work Phone: [facility] Comment on above: Ankle swelling, left (Primary Dx); Closed nondisplaced fracture of lateral malleolus of left fibula, initial encounter Start: 04-06-2023 End: 04-06-2023 ambulatory SUZIE HOGAN Facility:[facility] Start: 01-18-2023 End: 01-18-2023 Patient encounter procedure Suzie Hogan MD Work Phone: [facility] Comment on above: Carpal tunnel syndro me on right (Primary Dx); Ulnar neuropathy at elbow, right Start: 12-14-2022 End: 12-15-2022 ambulatory SUZIE HOGAN [facility] Start: 11-12-2022 Transcribe Orders Suzie clark MD Work Phone: [facility], Neuroscience Comment on above: Weakness of right up per extremity (Primary Dx) Start: 01-07-2018 End: 01-08-2018 Patient encounter Suzie Hogan Facility:[facility] Start: 01-07-2018 Patient encounter Facil [id number] Procedures Date Procedure Procedure Detail Performing Clinician Start: 08-10-2023 Radex ankle complete minimum 3 views Wai Ferris REEFER TRUCK DRIVER.KAYLIE Work Phone: Start: 09-11-2019 Colonoscopy Kimberley Lopez MD Work Phone: Plan of Treatment Date Care Activity Detail Author Start: 09-10-2029 Screening for malignant neoplasm of colon [facility] Start: 09-10-2024 Screening for malignant neoplasm of colon [facility] Start: 12-05-2023 Covid-19 Vaccine () Covid-19 Vaccine () [facility] Start: 12-05-2023 Influenza vaccination Influenza Vaccine (#1) [facility] Start: 04-05-2023 Advance Directive Discussion Advance Directive Discussion [facility] Start: 04-05-2023 Behavioral Health Screening Behavioral Health Screening [facility] Start: 01-18-2023 End: 01-18-2023 Patient encounter procedure 01/18/2023 8:30 AM EDT Procedure visit [facility] [address] [place] [address] Medical Office Building, [address]nd [place] [address] Suzie Hogan MD [address] [place] [address] Kimberley Lopez MD [address] [address] [facility] Start: 12-04-2022 COVID-19 Vaccine () COVID-19 Vaccine () [facility] Start: 12-04-2022 Influenza vaccination Sequential Influenza Vaccine (#1) [facility] Start: 2016 Fall risk assessment Falls Risk Assessment [facility] Start: 2016 Pneumococcal Vaccine: Age 65+ (1 - PCV) Pneumococcal Vaccine: Age 65+ (1 - PCV) [facility] Start: 2011 RSV Vaccine (1 - 1-dose 60+ series) RSV Vaccine (1 - 1-dose 60+ series) [facility] Start: 2001 Administration of herpes zoster vaccine Zoster Vaccines (1 of 2) [facility] Start: 2001 Screening for malignant neoplasm of colon Flexible sigmoidoscopy [facility] Start: 1996 Diabetes Screening Diabetes Screening [facility] Start: 1996 Screening for malignant neoplasm of colon [facility] Start: 1986 Lipid panel Lipid Screening [facility] Start: 1970 Urine microalbumin profile DTaP,Tdap,Td Vaccine (1 - Tdap) [facility] Start: 1969 Anxiety Screening Anxiety Screening [facility] Start: 1969 Depression Screening Depression Screening [facility] Start: 1969 Hepatitis C screening Hepatitis C Screening [facility] Start: 1963 Depression screening using PHQ-9 (Patient Health Questionnaire 9) score Depression Screening (PHQ-2/9) [facility] Start: 1954 History and physical examination, annual for health maintenance Wellness Visit [facility] Start: 1950 COVID-19 Vaccine (#1) COVID-19 Vaccine (#1) [facility] Start: 1950 Prostate specific antigen measurement PSA Level [facility] Start: 1950 Screening for malignant neoplasm of colon [facility] Start: 1950 Tetanus vaccination Tetanus: Every 10yrs [facility] Immunizations Immunization Date Immunization Notes Care Provider Fa becka 01-25-2023 influenza virus vacc ine, unspecified formulation Xr Carin Work Phone: [facility] Payers Date Payer Category Payer Unknown [id number] 2020 Unknown [id number] 2018 Private Health Insurance 2016 Medicare 2016 Medicare [id number] 2016 Medicare [id number] 1950 Unknown [id number] 1950 Unknown [id number] 1950 Unknown [id number] Medicare [id number] Social History Date Type Detail Facility Tobacco smoking stat [facility] Tobacco smoking consumption unknown [facility] Start: 1950 Sex Assigned At Not on file [facility] Start: 03-10-2020 End: 08-10-2023 Gender identity Not on file [facility] Start: 04-06-2023 Tobacco smoking stat [facility] Never smoked tobacco [facility] Start: 04-06-2023 Tobacco use and exposure Smokeless t obacco non-user [facility] Start: 08-10-2023 Alcohol intake 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 Author Type: Malware Analyst Type: Progress Notes Filed: 08/10/2023 15:39 Note Text: Radiology Service Progress Note PATIENT NAME: Issac Harman DATE OF SERVICE: August 10, 2023 TIME: 3:28 PM PATIENT IDENTITY VERIFICATION COMPLETED USING TWO (2) IDENTIFIERS: Name and Date of confirmed by patient verbally. FALL SCREENING: Has the patient had 2 falls in the last year or 1 fall with injury or currently using an Ambulatory Assistive Device (Walker, Cane, Wheelchair, Crutches, etc.)? No PATIENT GENDER DATA: Male PATIENT RELEVANT IMPLANT DATA REVIEWED: Yes PATIENT PRESENTS WITH AN IMPLANTABLE OR ATTACHED AIRCRAFT ORDNANCE TECHNICIAN: No RADIOLOGY DEPARTMENT: General X-ray: Exam(s) Completed: Lower Extremity X-Ray(s): Ankle, Left PERIPHERAL IV DATA: Not applicable SIGNED BY: RT Genesis(R) August 10, 2023 3:28 PM [facility] 08-10-2023 Note HNO ID: [id number] Author: WAI FERRIS APRN.FOUR SLIDE MACHINE SETTER Service: ? Author Type: Nurse Practitioner Type: Progress Notes Filed: 08/10/2023 16:12 Note Text: This note was created using NoteWriter. Subjective Issac Harman is a 73 year old male. 73 year old male with PMH thyroid and hyperlipidemia presents for ankle pain. 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 Ambulatory in exam room Don't think I broke it but states presents at urging of his The history is provided by the patient. No tile grinder was used. Musculoskeletal Problem This is a new problem. The current episode started today. The problem occurs constantly. The problem has been unchanged. Associated symptoms include joint swelling. Pertinent negatives include no abdominal pain, anorexia, arthralgias, change in bowel habit, chest pain, chills, congestion, coughing, diaphoresis, fatigue, fever, headaches, myalgias, nausea, neck pain, numbness, rash, sore throat, swollen glands, urinary symptoms, vertigo, visual change, vomiting or weakness. Nothing aggravates the symptoms. He has tried nothing for the symptoms. The treatment provided no relief. PAST MEDICAL HISTORY Diagnosis Date Diarrhea Thyroid disease PAST SURGICAL HISTORY Procedure Laterality Date COLONOSCOPY FLX DX W/COLLJ SPEC WHEN PFRMD 08/13/2008 Colonoscopy COLONOSCOPY FLX DX W/COLLJ SPEC WHEN PFRMD 05/11/14 Colonoscopy COLONOSCOPY FLX DX W/COLLJ SPEC WHEN PFRMD 09/11/2019 Colonoscopy ALLERGIES Shellfish MEDICATIONS predniSONE (DELTASONE) 5 mg tablet doxycycline monohydrate (MONODOX) 100 mg capsule sjmrohwe-xrp-HM-lycopen-lutein (CENTRUM SILVER MEN) 300-600-300 mcg tab Take 1 tablet by mouth once daily. Cholecalciferol, Vitamin D3, (VITAMIN D) 25 mcg (1,000 unit) cap Take 1,000 Units by mouth once daily. rosuvastatin (CRESTOR) 5 mg tablet Take 5 mg by mouth once daily. levothyroxine (SYNTHROID) 50 mcg tablet pravastatin sodium (PRAVASTATIN ORAL) Take by mouth. omega-3 fatty acids/vitamin e(FISH OIL 1,000 MG CAP) Take one(1) tablet daily. aspirin(ECOTRIN LOW STRENGTH 81 MG TAB) Take one(1) tablet daily. FAMILY HISTORY Problem Relation Age of Onset Colon Cancer Father Social History Tobacco Use Smoking status: Never Smokeless tobacco: Never Substance Use Topics Alcohol use: No Drug use: Never Review of Systems Constitutional: Negative for chills, diaphoresis, fatigue and fever. HENT: Negative for congestion and sore throat. Eyes: Negative for pain, discharge and itching. Respiratory: Negative for apnea, cough, choking and chest tightness. Cardiovascular: Negative for chest pain. Gastrointestinal: Negative for abdominal pain, anorexia, change in bowel habit, nausea and vomiting. Musculoskeletal: Positive for joint swelling. Negative for arthralgias, myalgias and neck pain. Left ankle pain Skin: Negative for rash. Allergic/Immunologic: Negative for environmental allergies, food allergies and immunocompromised state. Neurological: Negative for dizziness, vertigo, weakness, numbness and headaches. Hematological: Negative for adenopathy. Does not bruise/bleed easily. Psychiatric/Behavioral: Negative for agitation and behavioral problems. Objective BP 124/82 Pulse 92 Temp 36.4 ?C (97.5 ?F) (Tympanic) Resp 16 Wt 86 kg (189 lb 9.5 oz) SpO2 97% Physical Exam Vitals and nursing note reviewed. Constitutional: General: He is not in acute distress. Appearance: Normal appearance. He is not ill-appearing, toxic-appearing or diaphoretic. HENT: Head: Normocephalic and atraumatic. Right Ear: External ear normal. Left Ear: External ear normal. Nose: Nose normal. No congestion or rhinorrhea. Mouth/Throat: Mouth: Mucous membranes are moist. Pharynx: Oropharynx is clear. No oropharyngeal exudate or posterior oropharyngeal erythema. Eyes: General: Right eye: No discharge. Left eye: No discharge. Extraocular Movements: Extraocular movements intact. Conjunctiva/sclera: Conjunctivae normal. Pupils: Pupils are equal, round, and reactive to light. Cardiovascular: Rate and Rhythm: Normal rate and regular rhythm. Pulses: Normal pulses. Heart sounds: Normal heart sounds. No murmur heard. No friction rub. No gallop. Pulmonary: Effort: Pulmonary effort is normal. No respiratory distress. Breath sounds: Normal breath sounds. No stridor. No wheezing, rhonchi or rales. Chest: Chest wall: No tenderness. Abdominal: General: Abdomen is flat. There is no distension. Palpations: Abdomen is soft. There is no mass. Tenderness: There is no abdominal tenderness. There is no guarding or rebound. Hernia: No hernia is present. Musculoskele (more content not included)... [facility] 08-10-2023 History of Present illness Narrative Radiology Service Progress Note PATIENT NAME: Issac Harman DATE OF SERVICE: August 10, 2023 TIME: 3:28 PM PATIENT IDENTITY VERIFICATION COMPLETED USING TWO (2) IDENTIFIERS: Name and Date of confirmed by patient verbally. FALL SCREENING: Has the patient had 2 falls in the last year or 1 fall with injury or currently using an Ambulatory Assistive Device (Walker, Cane, Wheelchair, Crutches, etc.)? No PATIENT GENDER DATA: Male PATIENT RELEVANT IMPLANT DATA REVIEWED: Yes PATIENT PRESENTS WITH AN IMPLANTABLE OR ATTACHED AIRCRAFT ORDNANCE TECHNICIAN: No RADIOLOGY DEPARTMENT: General X-ray: Exam(s) Completed: Lower Extremity X-Ray(s): Ankle, Left PERIPHERAL IV DATA: Not applicable SIGNED BY: RT Genesis(R) August 10, 2023 3:28 PM documented in this encounter [facility] 08-10-2023 History of Present illness Narrative This note was created using [employer]riter. Subjective Issac Harman is a 73 year old male. 73 year old male with PMH thyroid and hyperlipidemia presents for ankle pain. 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 Ambulatory in exam room Don't think I broke it but states presents at urging of his The history is provided by the patient. No tile grinder was used. Musculoskeletal Problem This is a new problem. The current episode started today. The problem occurs constantly. The problem has been unchanged. Associated symptoms include joint swelling. Pertinent negatives include no abdominal pain, anorexia, arthralgias, change in bowel habit, chest pain, chills, congestion, coughing, diaphoresis, fatigue, fever, headaches, myalgias, nausea, neck pain, numbness, rash, sore throat, swollen glands, urinary symptoms, vertigo, visual change, vomiting or weakness. Nothing aggravates the symptoms. He has tried nothing for the symptoms. The treatment provided no relief. PAST MEDICAL HISTORY Diagnosis Date Diarrhea Thyroid disease PAST SURGICAL HISTORY Procedure Laterality Date COLONOSCOPY FLX DX W/COLLJ SPEC WHEN PFRMD 08/13/2008 Colonoscopy COLONOSCOPY FLX DX W/COLLJ SPEC WHEN PFRMD 05/11/14 Colonoscopy COLONOSCOPY FLX DX W/COLLJ SPEC WHEN PFRMD 09/11/2019 Colonoscopy ALLERGIES Shellfish MEDICATIONS predniSONE (DELTASONE) 5 mg tablet doxycycline monohydrate (MONODOX) 100 mg capsule mcamjnls-rqu-AY-lycopen-lutein (CENTRUM SILVER MEN) 300-600-300 mcg tab Take 1 tablet by mouth once daily. Cholecalciferol, Vitamin D3, (VITAMIN D) 25 mcg (1,000 unit) cap Take 1,000 Units by mouth once daily. rosuvastatin (CRESTOR) 5 mg tablet Take 5 mg by mouth once daily. levothyroxine (SYNTHROID) 50 mcg tablet pravastatin sodium (PRAVASTATIN ORAL) Take by mouth. omega-3 fatty acids/vitamin e(FISH OIL 1,000 MG CAP) Take one(1) tablet daily. aspirin(ECOTRIN LOW STRENGTH 81 MG TAB) Take one(1) tablet daily. FAMILY HISTORY Problem Relation Age of Onset Colon Cancer Father Social History Tobacco Use Smoking status: Never Smokeless tobacco: Never Substance Use Topics Alcohol use: No Drug use: Never Review of Systems Constitutional: Negative for chills, diaphoresis, fatigue and fever. HENT: Negative for congestion and sore throat. Eyes: Negative for pain, discharge and itching. Respiratory: Negative for apnea, cough, choking and chest tightness. Cardiovascular: Negative for chest pain. Gastrointestinal: Negative for abdominal pain, anorexia, change in bowel habit, nausea and vomiting. Musculoskeletal: Positive for joint swelling. Negative for arthralgias, myalgias and neck pain. Left ankle pain Skin: Negative for rash. Allergic/Immunologic: Negative for environmental allergies, food allergies and immunocompromised state. Neurological: Negative for dizziness, vertigo, weakness, numbness and headaches. Hematological: Negative for adenopathy. Does not bruise/bleed easily. Psychiatric/Behavioral: Negative for agitation and behavioral problems. Objective BP 124/82 Pulse 92 Temp 36.4 C (97.5 F) (Tympanic) Resp 16 Wt 86 kg (189 lb 9.5 oz) SpO2 97% Physical Exam Vitals and nursing note reviewed. Constitutional: General: He is not in acute distress. Appearance: Normal appearance. He is not ill-appearing, toxic-appearing or diaphoretic. HENT: Head: Normocephalic and atraumatic. Right Ear: External ear normal. Left Ear: External ear normal. Nose: Nose normal. No congestion or rhinorrhea. Mouth/Throat: Mouth: Mucous membranes are moist. Pharynx: Oropharynx is clear. No oropharyngeal exudate or posterior oropharyngeal erythema. Eyes: General: Right eye: No discharge. Left eye: No discharge. Extraocular Movements: Extraocular movements intact. Conjunctiva/sclera: Conjunctivae normal. Pupils: Pupils are equal, round, and reactive to light. Cardiovascular: Rate and Rhythm: Normal rate and regular rhythm. Pulses: Normal pulses. Heart sounds: Normal heart sounds. No murmur heard. No friction rub. No gallop. Pulmonary: Effort: Pulmonary effort is normal. No respiratory distress. Breath sounds: Normal breath sounds. No stridor. No wheezing, rhonchi or rales. Chest: Chest wall: No tenderness. Abdominal: General: Abdomen is flat. There is no distension. Palpations: Abdomen is soft. There is no mass. Tenderness: There is no abdominal tenderness. There is no guarding or rebound. Hernia: No hernia is present. Musculoskeletal: General: Swelling (left lateral malllelous with difuse swelling. +TTP) present. No tenderness, deformity or signs of injury. Normal range of motion. Cervical back: Normal range of motion and neck supple. No rigidity or tenderness. Right lower leg: No edema. Left lower leg: No edema. Comments: Left lateral malleolus with diffuse and moderated swelling. Denies TTP No tibial plateau TTP No ecchymosis. Lymphadenopathy: Cervical: No cervical adenopathy. Skin: General: Skin is warm and dry. Capillary Refill: Capillary refill takes less than 2 seconds. Coloration: Skin is not jaundiced or pale. Findings: No bruising, lesion or rash. Neurological: General: No focal deficit present. Mental Status: He is alert and oriented to person, place, and time. Cranial Nerves: No cranial nerve deficit. Sensory: No sensory deficit. Motor: No weakness. Coordination: Coordination normal. Gait: Gait normal. Deep Tendon Reflexes: Reflexes normal. Psychiatric: Mood and Affect: Mood normal. Behavior: Behavior normal. Thought Content: Thought content normal. Assessment and Plan ASSESSMENT/PLAN: 1. Ankle swelling, left - ICD9: 719.07, ICD10: M25.472 (primary diagnosis) + injury - XR ANKLE GENERAL 3V AP/LAT/OBL LEFT - CONSULT TO ORTHOPAEDICS 2. Closed nondisplaced fracture of lateral malleolus of left fibula, initial encounter - ICD9: 824.2, ICD10: S82.65XA Secondary to injury +neuro No red flags Declines ortho splint Placed in Don Radha Boot, Crutches HE is to be NWB - CONSULT TO ORTHOPAEDICS- Patient states he may use go[employer], and therefore he was provided CD image with report. RICE OTC analgesics Wai Ferris APRN.FOUR SLIDE MACHINE SETTER documented in this encounter [facility] 04-06-2023 Note HNO ID: [id number] Author: Flor Khoury APRN.KAYLIE Service: ? Author Type: Nurse Practitioner Type: Progress Notes Filed: 04/06/2023 12:38 PM Note Text: CC: Patient presents with: Ear Problem: Ears feel clogged x 1 week HPI: Issac Harman is a 73 year old male who presents to the office with complaint of respiratory symptoms, sinus symptoms, and ear symptoms for a week. Symptoms are staying the same. Associated symptoms includes ear pressure . Denies nasal congestion, facial pain/pressure, fever, nausea, vomiting , and diarrhea. Treatments tried include nothing so far. with no relief of symptoms. Sick contacts: unknown. History of asthma, frequent episodes of bronchitis, chronic bronchitis, bronchiectasis or COPD: No Smoker: No Seasonal/environmental allergies: No The ROS is otherwise negative. The patient's pmh, medications, allergies, and past visits are reviewed. PHYSICAL EXAM: BP 136/82 Pulse 67 Temp 36.1 ?C (97 ?F) (Tympanic) Resp 16 Wt 85.6 kg (188 lb 12.8 oz) SpO2 99% General appearance: alert, cooperative, pleasant, in no acute distress Head: Normocephalic Eyes: EOM's intact, conjunctiva pink and moist, no icterus, sclera white, non-injected Ears: Right ear: External ear/canal- Normal, TM - serous effusion. Left ear: External ear/canal- Normal, TM - serous effusion Oropharynx:moist without lesions, No erythema, exudates or tonsillar hypertrophy. Heart: Negative. RRR without obvious murmur, gallop, or rubs. No ectopy. Lungs: clear to auscultation, without rales or wheeze, good air exchange PAST MEDICAL HISTORY Diagnosis Date Diarrhea Thyroid disease PAST SURGICAL HISTORY Procedure Laterality Date COLONOSCOPY FLX DX W/COLLJ SPEC WHEN PFRMD 08/13/2008 Colonoscopy COLONOSCOPY FLX DX W/COLLJ SPEC WHEN PFRMD 05/11/14 Colonoscopy COLONOSCOPY FLX DX W/COLLJ SPEC WHEN PFRMD 09/11/2019 Colonoscopy ALLERGIES Shellfish MEDICATIONS predniSONE (DELTASONE) 5 mg tablet doxycycline monohydrate (MONODOX) 100 mg capsule ybzyhhhv-pio-LB-lycopen-lutein (CENTRUM SILVER MEN) 300-600-300 mcg tab Take 1 tablet by mouth once daily. Cholecalciferol, Vitamin D3, (VITAMIN D) 25 mcg (1,000 unit) cap Take 1,000 Units by mouth once daily. rosuvastatin (CRESTOR) 5 mg tablet Take 5 mg by mouth once daily. levothyroxine (SYNTHROID) 50 mcg tablet omega-3 fatty acids/vitamin e(FISH OIL 1,000 MG CAP) Take one(1) tablet daily. aspirin(ECOTRIN LOW STRENGTH 81 MG TAB) Take one(1) tablet daily. pravastatin sodium (PRAVASTATIN ORAL) Take by mouth. FAMILY HISTORY Problem Relation Age of Onset Colon Cancer Father Social History Tobacco Use Smoking status: Never Smokeless tobacco: Never Substance Use Topics Alcohol use: No Drug use: Never ASSESSMENT/PLAN: 1. Pressure sensation in both ears - ICD9: 388.8, ICD10: H93.8X3 Already on steroids and doxy Instructed to add Claritin. Potential red flag symptoms discussed with the patient. Reviewed appropriate action plan to take if red flag symptoms occur. Patient agreeable to treatment plan. Flor Khoury APRN.[facility] 01-18-2023 History of Present illness Narrative Images from the original note were not included. [facility] - Neurology [address] [place] [address] Nerve Conduction & EMG Report Patient: Issac Harman Sex: Male Date of : 1950 Visit Date: 01/18/2023 8:21 AM Age: 72 Years Examining MD: Kimberley Lopez MD Referred by: Suzie Noonan MD Temperature: 32.4 Current Height: 5 feet 9 inch Referred for: RUE:numbness, pain and weakness for 6-8 weeks. No DM or neck pain. NKDA. Plan: The study is design to evaluate for radiculopathy, plexopathy, entrapment neuropathy, median or ulnar neuropathy. Indication, risk, side effects, and alternatives were explained. Patient agreed to proceed. Patient was instructed to clean the puncture site with soap and water and put some ice pack for bruising. Impression: This is an abnormal EMG. 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 There is also electrodiagnostic evidence of a right ulnar nerve entrapment across the elbow without axonal damage. There is NO electrodiagnostic evidence of right cervical radiculopathy or brachial plexopathy. EMG Summary: The right median motor nerve conduction study showed prolonged distal latency, normal amplitude and conduction velocity. The right median sensory nerve conduction study showed prolonged distal latency and normal amplitude. The right ulnar motor nerve conduction study showed normal latency and amplitude with reduced conduction velocity across the elbow to 43.4 m/s. The right ulnar sensory nerve conduction study was normal. The right radial, medial and lateral antebrachial cutaneous sensory nerve conduction study were normal. Needle EMG of the muscles tested showed no abnormal spontaneous activity. Normal motor unit action potentials and recruitment patterns were seen. Kimberley Lopez MD Diplomate, ABPN, NBPAS Clinical Neurophysiology, Neurology, Vascular Neurology and Sleep Medicine [facility], [place], [place] [phone] Motor NCS Nerve / Sites Muscle Latency Amplitude Distance Velocity ms mV cm m/s R Median - APB Wrist APB 6.58 5.6 7 Elbow APB 10.67 4.8 24.5 60.0 R Ulnar - ADM Wrist ADM 3.08 10.7 6.5 B.Elbow ADM 7.38 9.6 23 53.6 A.Elbow ADM 10.21 9.4 12 42.4 Sensory NCS Nerve / Sites Peak Amp Amp.2-3 Distance Velocity ms V V cm m/s R Median - Digit II Wrist 4.58 17.1 26.1 13 42 R Ulnar - Digit V Wrist 3.08 12.5 35.4 11 48 R Radial - Snuff Forearm 2.35 20.9 22.4 10 56 R Lateral antebrachial cutaneous - Forearm Elbow 1.92 7.2 0.06 12 83 R Medial antebrachial cutaneous - Forearm Elbow 1.81 8.6 9.7 12 89 EMG Summary Table Spontaneous Activity Amplitude Duration Recruitment Polyphasia Comment Muscle Ins Act Fib PSW Fasc - - - - - R. Deltoid Normal 0 0 0 Normal Normal Normal Normal Normal R. Triceps brachii Normal 0 0 0 Normal Normal Normal Normal Normal R. Biceps brachii Normal 0 0 0 Normal Normal Normal Normal Normal R. Pronator teres Normal 0 0 0 Normal Normal Normal Normal Normal R. Extensor digitorum communis Normal 0 0 0 Normal Normal Normal Normal Normal R. Flexor carpi ulnaris Normal 0 0 0 Normal Normal Normal Normal Normal R. Flexor digitorum profundus, dig 4 & 5 Normal 0 0 0 Normal Normal Normal Normal Normal R. Abductor digiti minimi (manus) Normal 0 0 0 Normal Normal Normal Normal Normal R. First dorsal interosseous Normal 0 0 0 Normal Normal Normal Normal Normal R. Abductor pollicis brevis Normal 0 0 0 Normal Normal Normal Normal Normal documented in this encounter [facility] Evaluation note Diagnosis Weakness of right upper extremity- Primary Other musculoskeletal symptoms referable to [facility] Carpal tunnel syndrome on right- Primary Carpal tunnel syndrome Ulnar neuropathy at elbow, right [facility] Diagnosis Ankle swelling, left- Primary Closed nondisplaced fracture of lateral malleolus of left fibula, initial encounter Ankle swelling, left [facility] Ankle swelling, left documented in this encounter [facility] for referral (narrative)* Diagnostic Procedure Only (Urgent) - Closed Specialty Diagnoses / Procedures Referred By Contac t Referred To Contact XR IMAGING Diagnoses Ankle swelling, left Procedures XR ANKLE GENERAL 3V AP/LAT/OBL LEFT RADEX ANKLE COMPLETE MINIMUM 3 VIEWS Wai Ferris APRN.[employer] [address] [place] [address] [place] [address] Referral ID Status Reason Start Date Expiration Date V isits Requested Visits Authorized [id number] Closed Auto-Generate d Referral 08/10/2023 09/08/2024 1 1 [facility] for visit Narrative* Diagnostic Procedure Only (Urgent) - Closed Specialty Diagnoses / Procedures Referred By Contac t Referred To Contact XR IMAGING Diagnoses Ankle swelling, left Procedures XR ANKLE GENERAL 3V AP/LAT/OBL LEFT RADEX ANKLE COMPLETE MINIMUM 3 VIEWS Wai Ferris APRN.[employer]ACHINE [employer]TER [address] [place] [address] [place] [address] Referral ID Status Reason Start Date Expiration Date V isits Requested Visits Authorized [id number] Closed Auto-Generate d Referral 08/10/2023 09/08/2024 1 1 [facility] Summary Purpose Family History No Family History Records FoundNo Family History Records FoundNo Family History Records FoundNo Family History Records FoundNo Family History Records Found Advance Directives Documents on File Type Date Recorded 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 Advance Directives and Livin g Will 12/14/2022 12:06 PM Reason for Referral Specialty Diagnoses / Procedures Referred By Contac t Referred To Contact Neurology Diagnoses Weakness of right upper extremity Suzie Hogan MD [address] [place] [address] [facility], [address] [place] [address] Referral ID Status Reason Start Date Expiration Date V isits Requested Visits Authorized [id number] Authorized 11/12/2022 11/12/2023 1 1 Specialty Diagnoses / Procedures Referred By Contac t Referred To Contact Orthopedics Diagnoses Ankle swelling, left Closed nondisplaced fracture of lateral malleolus of left fibula, initial encounter Procedures CONSULT TO ORTHOPAEDICS OFFICE/OUTPATIENT [facility] HIGH MDM 60 MINUTES Wai Ferris APRN.[employer]TER [address] [place] [address] Referral ID Status Reason Start Date Expiration Date Visits Requested Visits Authorized [id number] Authorized PCP Requested Referral 08/10/2023 08/09/2024 1 1 Specialty Diagnoses / Procedures Referred By Contac t Referred To Contact XR IMAGING Diagnoses Ankle swelling, left Procedures XR ANKLE GENERAL 3V AP/LAT/OBL LEFT RADEX ANKLE COMPLETE MINIMUM 3 VIEWS Wai Ferris, RIGOBERTO.[employer]TER [address] [place] [address] [place] [address] Referral ID Status Reason Start Date Expiration Date V isits Requested Visits Authorized [id number] Closed Auto-Generate d Referral 08/10/2023 09/08/2024 1 1 Additional Source Comments (unrecognized sect ion and content) No Status Records FoundNo Status Records FoundNo Status Records FoundNo Status Records FoundNo Status Records Found INFORMATION SOURCE (unrecogn ized section and content) DATE CREATED AUTHOR 02/04/2018 [facility] DATE CREATED AUTHOR AUTHOR'S ORGANIZ ATION 02/04/2018 [facility] DATE CREATED AUTHOR AUTHOR'S ORGANIZ ATION 07/20/2021 [facility] DATE CREATED AUTHOR AUTHOR'S ORGANIZ ATION 12/15/2022 [facility] DATE CREATED AUTHOR AUTHOR'S ORGANIZ ATION 08/12/2023 [facility] Reason for Visit (unrecogniz ed section and content) Specialty Diagnoses / Procedures Referred By Contac t Referred To Contact Neurology Diagnoses Weakness of right upper extremity Suzie Hogan MD [address] [place] [address] [facility] [place] [address] [facility] [place] [address] Referral ID Status Reason Start Date Expiration Date V isits Requested Visits Authorized [id number] Pending Review 11/12/2022 11/12/2023 1 1 Reason Comments left ankle pain Rolled ankle mowing a few hours ago Care Teams (unrecognized sec tion and content) 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 Relationship Specialty Start Date End Date Suzie Hogan MD [address] [place] [address] PCP - General Family Medicine 11/13/22 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 Relationship Specialty Start Date End Date Suzie Hogan MD PCP - General 05/04/08 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 Relationship Specialty Start Date End Date Suzie Hogan MD PCP - General 05/04/08 Source Comments (unrecognize d section and content) In the event this informatio n is protected by the Federal Confidentiality of Alcohol and Drug Abuse Patient Records regulations: The Federal rules restrict any use of the information to criminally investigate or prosecute any alcohol or drug abuse patient.[facility] the event this information is protected by the Federal Confidentiality of Alcohol and Drug Abuse Patient Records regulations: The Federal rules restrict any use of the information to criminally investigate or prosecute any alcohol or drug abuse patient.[facility] FOR RECORDS PERTAINING TO PATIENTS WHO ARE OR HAVE BEEN ENROLLED IN A CHEMICAL DEPENDENCY/SUBSTANCEABUSE PROGRAM, SOME INFORMATION MAY BE OMITTED. This clinical summary was aggregated from multiple sources. Caution should be exercised in using it in the provision of clinical care. This summary normalizes information from multiple sources, and as a consequence, information in this document may materially change the coding, format and clinical context of patient data. In addition, data may be omitted in some cases. CLINICAL DECISIONS SHOULD BE BASED ON THE PRIMARY CLINICAL RECORDS. [facility] [employer] provides no warranty or guarantee of the accuracy or completeness of information in this document.
== END | disposition home or self-care (01) ==
LOC: CVS 07:58
PROVIDERS: PCP Internal Medicine; Referring Provider Internal Medicine; Visit Provider Internal Medicine
DX: Z13.6 Encounter for screening for cardiovascular disorders (principal)
CPT/HCPCS: 76706

== ENCOUNTER → 2024-02-08 | Outpatient (CLI) | payer MEDICARE, BC, SELFPAY ==
[2024-02-08 08:19] LABS: Hemoglobin A1c 5.6 % (3.8-5.6)
[2024-02-08 08:33] LABS: Erythrocyte Sedimentation Rate 2 mm/hr (0-20)
[2024-02-08 08:54] LABS: ALB/GLOB Ratio 1.4 RATIO (0.9-2.4); AST(SGOT) 19 U/L (15-37); Alanine Aminotransfer ALT/SGPT 26 U/L (16-61); Alkaline Phosphatase 83 U/L (45-117); Anion Gap 6 (5-15); BUN 14 mg/dL (7-18); BUN/Creat Ratio 15.2 RATIO (10-20); CPK Total, Creatine Kinase 97 U/L (39-308); CRP < 2.90 mg/L (0.0-3.0); Calcium,Total 9.3 mg/dL (8.5-10.1); Chloride 109 mmol/L (98-107); Cholesterol 144 mg/dL (200); Creatinine, Serum 0.92 mg/dL (0.70-1.30); EST Glomerular Filtration Rate 86 mL/min (>60); Est Glom Filt Rate - Afr Amer 104 mL/min (>60); Globulin 2.9 g/dL (2.2-4.2); Glucose 116 mg/dL (74-106); High Density Lipoprotein 57 mg/dL; Potassium 4.3 mmol/L (3.5-5.1); Protein, Total 6.9 g/dL (6.4-8.2); Sodium Level 143 mmol/L (136-145); T4 Free Direct 0.78 ng/dL (0.76-1.46); Triglycerides 76 mg/dL; Very Low Density Lipoprotein 15 mg/dL (5-40)
[2024-02-09 16:10] LABS: Lipoprotein A 132.6 nmol/L (<75.0)
== END | disposition home or self-care (01) ==
LOC: LAB 07:34
PROVIDERS: PCP Internal Medicine; Referring Provider Internal Medicine; Visit Provider Internal Medicine
DX: M35.3 Polymyalgia rheumatica (principal); R73.9 Hyperglycemia, unspecified; E78.00 Pure hypercholesterolemia, unspecified; E78.41 Elevated Lipoprotein(a); E03.9 Hypothyroidism, unspecified
CPT/HCPCS: 36415; 80053; 80061; 82550; 83036; 83695; 84439; 84443; 85652; 86140

== ENCOUNTER → 2024-05-12 | Outpatient (CLI) | payer MEDICARE, BC, SELFPAY ==
[2024-05-12 17:29] LABS: T4 Free Direct 0.89 ng/dL (0.76-1.46)
== END | disposition home or self-care (01) ==
LOC: LAB 16:34
PROVIDERS: PCP Internal Medicine; Referring Provider Internal Medicine; Visit Provider Internal Medicine
DX: E03.9 Hypothyroidism, unspecified (principal)
CPT/HCPCS: 36415; 84439; 84443

== ENCOUNTER → 2024-07-31 | Outpatient (CLI) | payer MEDICARE, BC, SELFPAY ==
[2024-07-31 09:11] LABS: Hemoglobin A1c 5.5 % (<=5.6)
[2024-07-31 09:16] LABS: ALB/GLOB Ratio 1.8 RATIO (0.9-2.4); AST(SGOT) 29 U/L (<=37); Alanine Aminotransfer ALT/SGPT 24 U/L (<=46); Albumin, Serum 4.1 g/dL (3.4-4.8); Alkaline Phosphatase 75 U/L (40-129); Anion Gap 9 (5-15); BUN 16 mg/dL (4-19); BUN/Creat Ratio 14.2 RATIO (10-20); Calcium,Total 9.4 mg/dL (7.6-11.0); Carbon Dioxide 27.2 mmol/L (21.0-32.0); Chloride 107 mmol/L (98-108); Cholesterol 129 mg/dL (<=200); Creatinine, Serum 1.15 mg/dL (0.70-1.20); EST Glomerular Filtration Rate 67 (>60); Globulin 2.3 g/dL (2.2-4.2); Glucose 116 mg/dL (70-99); High Density Lipoprotein 43 mg/dL; Low Density Lipoprotein Calc. 73 mg/dL; Potassium 4.6 mmol/L (3.3-5.1); Protein, Total 6.4 g/dL (5.9-8.4); Sodium Level 143 mmol/L (133-145); Total Bilirubin 0.46 mg/dL (0.00-1.30); Triglycerides 65 mg/dL; Very Low Density Lipoprotein 13 mg/dL (5-40); cholesterol:hdl ratio screen 3.01
== END | disposition home or self-care (01) ==
LOC: LAB 07:29
PROVIDERS: PCP Internal Medicine; Referring Provider Internal Medicine; Visit Provider Internal Medicine
DX: E78.00 Pure hypercholesterolemia, unspecified (principal); R73.9 Hyperglycemia, unspecified; E03.9 Hypothyroidism, unspecified
CPT/HCPCS: 36415; 80053; 80061; 83036; 84443